=== PATIENT | female | born 2000 | race Caucasian/White ===

== ENCOUNTER 2021-01-29 11:34 | Emergency (ER) | payer OTHER ==
[2021-01-29] MEDS ORDERED: LIDOCAINE-EPINEPH-TETRACAINE 3 ML SYRINGE TOP STA (12:09)
--- NOTE | 2021-01-29 12:09 | ED Physician Documentation ---
PD HPI UPPER EXT INJURY - Stated complaint Stated Complaint: L THUMB LAC - Chief complaint Chief Complaint: Laceration - History obtained from History obtained from: Patient - History of Present Illness Location: Left, Finger (thumb tip volar side) Type of injury: Laceration Where injury occurred: Home Timing - onset: Last night (about 3:30 am) Timing - details: Abrupt onset (while cutting cheese) Worsened by: Moving, Palpating Associated symptoms: Other (it bleeds again this morning when cleaned it.). No: Weakness, Numbness Contributing factors: No: Anticoagulated Similar symptoms before: Has not had sx before Review of Systems Constitutional: denies: Fever Nose: denies: Rhinorrhea / runny nose, Congestion Throat: denies: Sore throat Respiratory: denies: Cough Skin: reports: Laceration (s) Neurologic: denies: Focal weakness, Numbness PD PAST MEDICAL HISTORY - Past Medical History Past Medical History: No - Present Medications Home Medications: Ambulatory Orders Medication Instructions Recorded Confirmed Home Medications Unobtainable 01/29/21 01/29/21 [HOME MEDICATIONS UNOBTAINABLE] - Allergies Allergies/Adverse Reactions: Allergies Allergy/AdvReac Type Severity Reaction Status Date / Time No Known Drug Allergies Allergy Verified 01/29/21 11:45 PD ED PE NORMAL - Vitals Vital signs reviewed: Yes - General General: Alert and oriented X 3, No acute distress, Well developed/nourished - Derm Derm: Normal color, Warm and dry - Extremities Extremities: Other (left thumb volar pad ulnar side with 1.5 cm laceration to fatty layer. Normal sensation distal to it. Prox end just at flexion crease. Normal flex/extension at IP joint. ) - Neuro Neuro: No motor deficit, No sensory deficit Results - Vitals Vitals: Vital Signs - 24 hr 01/29/21 01/29/21 11:42 13:13 Temperature 36.3 C L Heart Rate 90 72 Respiratory 16 16 Rate Blood Pressure 133/71 H 126/57 L O2 Saturation 99 99 Oxygen O2 Source Room air Procedures - Laceration (location) left thumb Length in cm: 1.5 Wound type: Linear, Into subcut fat, Clean. No: Contaminated Neurovascular status: No: Sensory intact, Motor intact, Vascular intact Anesthesia: LET, Lidocaine 1% Wound preparation: Irrigated copiously NS, Wound explored, To the base. No: FB identified Skin layer closure: Nylon, Running, Size #-0 - enter number (4), Sutures - enter # (8) Other: Patient tolerated well, No complications, Neurovascular intact, Dressing applied, Tetanus UTD PD MEDICAL DECISION MAKING - ED course Complexity details: considered differential (it does split with movement and will be more secure with sutures. ), d/w patient Departure - Departure Disposition: 01 Home, Self Care Clinical Impression: Thumb laceration Qualifiers: Encounter type: initial encounter Damage to nail status: without damage Foreign body presence: without foreign body Laterality: left Qualified Code(s): S61.012A - Laceration without foreign body of left thumb without damage to nail, initial encounter Condition: Stable Record reviewed to determine appropriate education?: Yes Instructions: ED Laceration Hand Follow-Up: BETH MARTINEZ PA-C [Primary Care Provider] - Comments: It is okay to wash and shower. Clean off the wound twice a day with soap and water, or peroxide and water. Apply some antibiotic ointment to it to keep it moist. Also to watch for signs of infection such as purulence, redness or increasing pain. Return to your primary care or the ER at the specified time for suture removal. Suture removal 8 to 10 days. Light to normal activity is okay with hand just to have it slightly bandaged or protected. Tylenol ibuprofen as needed for pains. Discharge Date/Time: 01/29/21 13:19
[2021-01-29] MEDS ORDERED: BUFFERED LIDOCAINE 10 ML SYRINGE SUBQ STA (12:10)
[2021-01-29 13:14] VITALS: BP 126/57
== END 2021-01-29 13:19 | disposition home or self-care (01) ==
LOC: ED 11:34
DX: S61.012A Laceration without foreign body of left thumb without damage to nail, initial encounter (principal); W26.0XXA Contact with knife, initial encounter; Y93.G1 Activity, food preparation and clean up; Y92.009 Unspecified place in unspecified non-institutional (private) residence as the place of occurrence of the external cause
CPT/HCPCS: 12001; 99282

== ENCOUNTER 2023-06-04 08:00 | Outpatient (CLI) | payer OTHER ==
[2023-06-04 15:56] LABS: BILIRUBIN,URINE NEGATIVE (NEGATIVE); GLUCOSE, URINE (UA) NEGATIVE (NEGATIVE); KETONES,URINE (UA) NEGATIVE (NEGATIVE); LEUKOCYTE ESTERASE, URINE NEGATIVE (NEGATIVE); NITRITE,URINE NEGATIVE (NEGATIVE); OCCULT BLOOD,URINE NEGATIVE (NEGATIVE); PROTEIN,URINE NEGATIVE (NEGATIVE); UROBILINOGEN,URINE 0.2 (NORMAL) E.U./dL (NORMAL)
[2023-06-04 15:58] LABS: CLARITY,URINE CLEAR (CLEAR)
[2023-06-04 16:15] LABS: BACTERIA,URINE None Seen /HPF (None Seen); RBC,URINE None Seen /HPF (0-5); SQUAMOUS EPITHELIAL CELL,UR RARE Squamous (<= Few); WBC,URINE 0-3 /HPF (0-5)
== END 2023-06-04 23:59 | disposition home or self-care (01) ==
LOC: LAB.WC 08:00
PROVIDERS: ATTEND Nurse Practitioner
DX: Z34.90 Encounter for supervision of normal pregnancy, unspecified, unspecified trimester (principal)
CPT/HCPCS: 81001; 87086

== ENCOUNTER 2023-06-08 11:48 | Outpatient (CLI) | payer OTHER ==
[2023-06-08 19:01] LABS: BASOPHILS % (AUTO) 0.4 %; EOSINOPHILS % (AUTO) 0.1 %; HCT - HEMATOCRIT 38.1 % (37.0-47.0); HGB - HEMOGLOBIN 12.8 g/dL (12.0-16.0); LYMPHOCYTES % (AUTO) 24.1 %; MEAN CORPUSCULAR HGB CONC 33.6 g/dL (32.0-36.0); MEAN CORPUSCULAR VOLUME 89.4 fL (81.0-99.0); MEAN PLATELET VOLUME 10.3 fL (7.9-10.8); MONOCYTES # (AUTO) 0.3 10^3/uL (0.0-1.0); MONOCYTES % (AUTO) 3.8 %; NEUTROPHILS # (AUTO) 5.8 10^3/uL (1.5-6.6); NEUTROPHILS % (AUTO) 71.4 %; PLT - PLATELET COUNT 268 10^3/uL (130-450); RED BLOOD COUNT 4.26 10^6/uL (4.20-5.40); RED CELL DISTRIBUTION WIDTH 12.1 % (12.0-15.0); WHITE BLOOD COUNT 8.1 x10^3/uL (4.8-10.8)
[2023-06-10 09:08] LABS: HBsAG SCREEN Negative (Negative)
[2023-06-10 12:08] LABS: VARICELLA-ZOSTER AB IGG 673 index (Immune >165)
[2023-06-10 20:07] LABS: HCV AB Non Reactive (Non Reactive); HIV SCREEN 4TH GENERATION Non Reactive (Non Reactive)
[2023-06-11 04:09] LABS: RPR Non Reactive (Non Reactive)
== END 2023-06-08 11:49 | disposition home or self-care (01) ==
LOC: LAB.N 11:48
PROVIDERS: ATTEND Nurse Practitioner
DX: Z34.90 Encounter for supervision of normal pregnancy, unspecified, unspecified trimester (principal)
CPT/HCPCS: 36415; 85025; 86592; 86762; 86787; 86803; 86850; 86900; 86901; 87340; 87389

== ENCOUNTER 2023-06-12 13:38 | Outpatient (CLI) | payer OTHER ==
--- NOTE | 2023-06-12 15:49 | Ultrasound Report ---
PROCEDURE: OB First Trimester w/TV INDICATIONS: POSITIVE TEST OUTSIDE/PRIOR DATING DATA: Last menstrual period (LMP): 04/15/2023. LMP-based estimated date of delivery (ZAKI): 01/20/2024. First dating scan (date and location): 06/13/2023. Estimated date of delivery (ZAKI) from first dating scan: 01/25/2024. TECHNIQUE: Real-time scanning was performed of the fetus and maternal pelvic organs, with image documentation. Endovaginal scanning was also performed to better visualize the fetus and maternal ovaries. COMPARISON: None. FINDINGS: Intrauterine gestational sac present. Embryo: [place]-rump length measures 1.2 cm, consistent with a 7 week 4 day gestation Heart rate: 140 bpm. Other: No perigestational fluid collection. Measurement variability in dating: +/- 4 weeks by LMP, +/- 7 days by mean sac diameter (use before 6 weeks gestation if crown-rump length not able to be measured), +/- 5 days by crown-rump length (6-12 weeks gestation). Maternal organs: Ovaries appear within normal limits. IMPRESSION: Single live intrauterine consistent with 7 week 4 day gestation Reviewed by: Juan Sigala MD on 06/12/2023 2:48 PM MATT Approved by: Juan Sigala MD on 06/12/2023 2:48 PM [facility] Station ID: [id number]
== END 2023-06-12 13:39 | disposition home or self-care (01) ==
LOC: DI 13:38
PROVIDERS: ATTEND Nurse Practitioner
DX: Z34.91 Encounter for supervision of normal pregnancy, unspecified, first trimester (principal)

== ENCOUNTER 2023-07-01 08:00 | Outpatient (CLI) | payer OTHER ==
[2023-07-02 18:04] LABS: CHLAMYDIA TRACHOMATIS DNA NEGATIVE (NEGATIVE); NEISSERIA GONORRHOEAE DNA NEGATIVE (NEGATIVE); TRICHOMONAS VAGINALIS DNA NEGATIVE (NEGATIVE)
== END 2023-07-01 23:59 | disposition home or self-care (01) ==
LOC: LAB.WC 08:00
PROVIDERS: ATTEND Nurse Practitioner
DX: Z11.3 Encounter for screening for infections with a predominantly sexual mode of transmission (principal)
CPT/HCPCS: 87491; 87591; 87661

== ENCOUNTER 2023-07-03 16:09 | Outpatient (CLI) | payer OTHER | END 2023-07-03 16:10 | disposition home or self-care (01) | LOC: LAB 16:09 | PROVIDERS: ATTEND Nurse Practitioner | DX: Z36.89 Encounter for other specified antenatal screening (principal) ==

== ENCOUNTER 2023-08-12 17:58 | Outpatient (CLI) | payer OTHER | END 2023-08-12 17:59 | disposition home or self-care (01) | LOC: LAB.N 17:58 | PROVIDERS: ATTEND Nurse Practitioner | DX: Z34.90 Encounter for supervision of normal pregnancy, unspecified, unspecified trimester (principal) | CPT/HCPCS: 36415; 82105 ==

== ENCOUNTER 2023-09-09 16:17 | Outpatient (CLI) | payer OTHER ==
--- NOTE | 2023-09-11 13:59 | Ultrasound Report ---
PROCEDURE: OB Anatomy Scan INDICATIONS: SUPERVISION OF OUTSIDE/PRIOR DATING DATA: Last menstrual period (LMP): 04/15/2023. LMP-based estimated date of delivery (ZAKI): 01/20/2024. First dating scan (date and location): 06/12/2023. Estimated date of delivery (ZAKI) from first dating scan: 01/25/2024. The below data below was generated using the clinical ZAKI of 01/20/2024 TECHNIQUE: Real-time scanning was performed of the fetus, with image documentation and biometric measurements. Endovaginal scanning: Not performed. COMPARISON: None. FINDINGS: General: A single living intrauterine gestation is present. Presentation: Variable Placenta: Placental position is anterior, without previa. Amniotic fluid index: 14.5 cm, within normal limits for gestational age. heart rate: 153 beats per minute. Maternal cervical canal: 4.5 cm long; normal length is 2.5 cm or more. biometrics: Biparietal diameter: 4.8 cm, 20 weeks 4 days, 31 percentile Head circumference: 18.4 cm, 20 weeks 5 days, 31 percentile Abdominal circumference: 16.3 cm, 21 weeks 3 days, 55th percentile Femur length: 3.37 m, 20 weeks 2 days, 18th percentile Estimated gestational age from initial scan: 21 weeks 0 days Composite gestational age from present scan: 20 weeks 3 days Estimated weight and percentile: 381 g, 36th percentile Measurement variability in biometric dating: +/- 10 days from 12-20 weeks gestation, +/- 2 weeks from 20-30 weeks gestation, +/- 3 weeks at 30 weeks gestation or later. Anatomic survey: Neuro: Ventricles are normal at less than 10 mm. Cisterna magna is normal at 3-11 mm. Cerebellum i s normal in size and morphology. Nuchal skin fold: Normal at less than 6 mm between 14 and 20 weeks gestational age. Face: Nose and lips, facial profile are normal. Spine: No evidence for spina bifida. Heart: 4-chambered heart is present, with normal ventricular outflow tracts. Diaphragm: Diaphragm is intact. Stomach: Left-sided stomach is present. Kidneys: No hydronephrosis. Normal is less than 5 mm in 2nd trimester, less than 7 mm in 3rd trimester. Cord: 3 vessel cord has orthotopic insertion. Bladder: Normal in size. Extremities: All 4 extremities are visualized. IMPRESSION: Single living intrauterine at 20 weeks 0 days, ZAKI of 01/20/2024. Estimated weight of 381 g, 36th percentile. Reviewed by: Kev Glez MD on 09/11/2023 1:58 PM PST Approved by: Kev Glez MD on 09/11/2023 1:58 PM [facility] Station ID: [id number]
== END 2023-09-09 16:18 | disposition home or self-care (01) ==
LOC: DI 16:17
PROVIDERS: ATTEND Nurse Practitioner
DX: Z34.92 Encounter for supervision of normal pregnancy, unspecified, second trimester (principal)

== ENCOUNTER 2023-10-19 10:46 | Outpatient (CLI) | payer OTHER ==
[2023-10-19 19:08] LABS: HCT - HEMATOCRIT 33.7 % (37.0-47.0); HGB - HEMOGLOBIN 10.8 g/dL (12.0-16.0); MEAN CORPUSCULAR HEMOGLOBIN 29.7 pg (27.0-31.0); MEAN CORPUSCULAR VOLUME 92.6 fL (81.0-99.0); MEAN PLATELET VOLUME 10.8 fL (7.9-10.8); RED BLOOD COUNT 3.64 10^6/uL (4.20-5.40); RED CELL DISTRIBUTION WIDTH 13.8 % (12.0-15.0); WHITE BLOOD COUNT 11.1 x10^3/uL (4.8-10.8)
== END 2023-10-19 10:47 | disposition home or self-care (01) ==
LOC: LAB.N 10:46
PROVIDERS: ATTEND Obstetrics & Gynecology
DX: Z34.90 Encounter for supervision of normal pregnancy, unspecified, unspecified trimester (principal)
CPT/HCPCS: 36415; 82950; 85027

== ENCOUNTER 2023-12-17 08:00 | Outpatient (CLI) | payer OTHER ==
[2023-12-17 18:12] LABS: CREATININE,URINE 81.9 mg/dL; PROTEIN/CREATININE RATIO,URINE 0.2 (<=0.2)
== END 2023-12-17 23:59 | disposition home or self-care (01) ==
LOC: LAB.WC 08:00
PROVIDERS: ATTEND Nurse Practitioner
DX: R60.0 Localized edema (principal)
CPT/HCPCS: 82570; 84156

== ENCOUNTER 2023-12-26 08:00 | Outpatient (CLI) | payer OTHER | END 2023-12-26 23:59 | disposition home or self-care (01) | LOC: LAB.WC 08:00 | PROVIDERS: ATTEND Obstetrics & Gynecology | DX: Z36.85 Encounter for antenatal screening for Streptococcus B (principal) | CPT/HCPCS: 87797 ==

== ENCOUNTER 2023-12-28 07:26 | Outpatient (CLI) | payer OTHER ==
--- NOTE | 2023-12-28 08:48 | Ultrasound Report ---
PROCEDURE: OB Follow up INDICATIONS: UTERINE SIZE DATE DISCREPENCY OUTSIDE/PRIOR DATING DATA: Last menstrual period (LMP): 04/15/2023. LMP-based estimated date of delivery (ZAKI): 01/20/2024. First dating scan (date and location): 06/12/2023. Estimated date of delivery (ZAKI) from first dating scan: 01/25/2024. Working ZAKI is 01/20/2024 TECHNIQUE: Real-time scanning was performed of the fetus, with image documentation and biometric measurements. COMPARISON: 09/09/2023 FINDINGS: General: A single living intrauterine gestation is present. Presentation: Vertex Placenta: Placental position is anterior, without previa. Amniotic fluid index: 15.9 cm, within normal limits for gestational age. heart rate: 144 beats per minute. Maternal cervical canal: 4.1 cm long; normal length is 2.5 cm or more. biometrics: Biparietal diameter: 9.1 cm, 37 weeks, 72.3 percentile Head circumference: 30.39 cm, 33 weeks and 6 days, 0.5 percentile Abdominal circumference: 32.07 cm, 36 weeks, 41.5 percentile Femur length: 6.57 cm, 33 weeks and 6 days, 2 percentile Estimated gestational age from initial scan: 36 weeks and 5 days Composite gestational age from present scan: 35 weeks and 1 day Estimated weight and percentile: 2644.5 g, 19.6 percentile Measurement variability in biometric dating: +/- 10 days from 12-20 weeks gestation, +/- 2 weeks from 20-30 weeks gestation, +/- 3 weeks at 30 weeks gestation or more. Other: Not applicable. IMPRESSION: Normal interval growth with EFW at the 19.6 percentile. Normal JOSE. Vertex presentation Head circumference is less than the 1st percentile, however BPD is within normal limits. Attention on follow-up. Reviewed by: Yomi Araujo MD on 12/28/2023 8:46 AM PDT Approved by: Yomi Araujo MD on 12/28/2023 8:46 AM PDT Station ID: [id number]
== END 2023-12-28 07:27 | disposition home or self-care (01) ==
LOC: DI 07:26
PROVIDERS: ATTEND Nurse Practitioner
DX: O26.843 Uterine size-date discrepancy, third trimester (principal); Z3A.35 35 weeks gestation of pregnancy; O99.891 Other specified diseases and conditions complicating pregnancy; L29.9 Pruritus, unspecified; M79.89 Other specified soft tissue disorders
CPT/HCPCS: 36415; 82239; 82570; 83036; 84156; 85027; 86592

== ENCOUNTER 2023-12-28 08:11 | Outpatient (CLI) | payer OTHER ==
[2023-12-28 08:28] LABS: HCT - HEMATOCRIT 35.5 % (37.0-47.0); HGB - HEMOGLOBIN 11.8 g/dL (12.0-16.0); MEAN CORPUSCULAR HEMOGLOBIN 29.7 pg (27.0-31.0); MEAN CORPUSCULAR HGB CONC 33.2 g/dL (32.0-36.0); MEAN CORPUSCULAR VOLUME 89.4 fL (81.0-99.0); MEAN PLATELET VOLUME 9.9 fL (7.9-10.8); RED BLOOD COUNT 3.97 10^6/uL (4.20-5.40); RED CELL DISTRIBUTION WIDTH 13.5 % (12.0-15.0); WHITE BLOOD COUNT 10.8 x10^3/uL (4.8-10.8)
[2023-12-28 08:45] LABS: CREATININE,URINE 35.9 mg/dL; PROTEIN/CREATININE RATIO,URINE 0.2 (<=0.2)
[2023-12-28 11:28] LABS: ESTIMATED AVERAGE GLUCOSE 97 mg/dL (70-100)
== END 2023-12-28 08:12 | disposition home or self-care (01) ==
LOC: LAB 08:11
PROVIDERS: ATTEND Obstetrics & Gynecology
DX: O99.891 Other specified diseases and conditions complicating pregnancy (principal); L29.9 Pruritus, unspecified; M79.89 Other specified soft tissue disorders
CPT/HCPCS: 36415; 82239; 82570; 83036; 84156; 85027; 86592

== ENCOUNTER 2024-01-14 08:00 | Inpatient (IN) | payer OTHER ==
[2024-01-14] MEDS ORDERED: OXYTOCIN/SODIUM CHLORIDE 500 ML IV PRN (08:10)
[2024-01-14] MEDS ORDERED: miSOPROStoL 200 MCG TABLET BC PRN (08:10)
[2024-01-14] MEDS ORDERED: OXYTOCIN 10 UNIT/ML VIAL IM PRN (08:10)
[2024-01-14] MEDS ORDERED: SODIUM CHLORIDE FLUSH 0.9% 10 ML SYRINGE IVP PRN (08:10)
[2024-01-14] MEDS ORDERED: TRANEXAMIC ACID IN NACL 1,000 MG/100 ML BAG IV PRN (08:10)
[2024-01-14] MEDS ORDERED: METHYLERGONOVINE 0.2 MG/ML VIAL IM PRN (08:10)
[2024-01-14] MEDS ORDERED: lidocaine 1% 20 ML MDV ID PRN (08:10)
[2024-01-14] MEDS ORDERED: CARBOPROST TROMETHAMINE 250 MCG/ML VIAL IM PRN (08:10)
--- NOTE | 2024-01-14 08:25 | HISTORY & PHYSICAL EXAMINATION ---
Admit History - : 1 Parity: 0 Premature: 0 Ectopic: 0 : 0 Care: positive: [facility] Risk/History: positive: None Complications This : positive: None Smoking Status: Never smoker - Mother's Labs Mother's Blood Type: positive: B Mother's RH: positive: Positive GBS: positive: Group B Step Negative Rubella Status: positive: Non-immune - Other Maternal History Other Maternal History: HPI: This 23 yo @ 39+1 weeks by LMP and confirmed by 7+4 week ultrasound presents for elective induction of labor. Upon arrival her cervix was 2/70/-2 and vertex with intact membranes. Melgar score of 6. We reviewed management options at length and patient agreeable to cervical ripening with misoprostol. She has been a patient of [facility] for the duration of her which has remained uncomplicated. No Headache, visual changes, or right upper quadrant abdominal pain. Denies nausea and vomiting. Denies urinary urgency or dysuria. Spouse (Dl) home from deployment but only for 2 weeks. Well- supported, her parents here on [place] and Sister in [place]. 12/28/2023 u/s EFW 19.6% (2644.5g @ 35.5weeks gestation), normal JOSE (15.9cm), vertex presentation. Head circumference less than first percentile but BPD within normal limits. ROS: All other symptoms reviewed and were negative except per HPI. Dating criteria LMP:04/15/23 ZAKI by LMP: 01/20/24 US: 06/13/2023 7+4 weeks CW dates Final ZAKI: 01/20/2024 Serial exams agree. OB Hx: G1: current course: Pre- Weight:141.8 BMI: 30.80 Blood type: B+ Antibody: negative CBC: PLT 268 HCT 38.1 HGB 12.8 RUB: immune VZV: immune HBsAg: negative HepC: N-R RPR/AB-EIA: N-R HIV: N-R PAP: never, will plan to complete POST GC/CT: 07/01- Negative HSV: denies in self and partner Genetic testing: MaterniT 21 07/03/2023 Negative ; AFP 08/12- Negative Covid: Moderna, initial set Flu: will consider FAS: WNL, 3 VC, anterior placenta; no previa, JOSE normal EFW 36% 50gm OGCT: 131 TDAP: Given 10/24/2023 Breast Pump: Given 3rd trimester PLT 189 HGB 10.8; HCT 33.7 GBS:12/26/23 Negative Delivery plan: Take it as it comes. Contraception: Previous use OCPs. Would like to start again, likely Chanda No significant medical, surgical, social or family history. Allergies to gluten but no known drug allergies. Current medications: vitamins daily. Physical Exam: Normocephalic, atraumatic Heart RRR w/o M/G/R Lungs CTAB Abdomen gravid, soft, nontender. EFW 3300g FHR baseline 140, moderate variability, + accelerations, no decelerations Contractions palpate moderate every 3-6 minutes with soft resting tone SVE 2/50/-2, vertex, membranes intact Bilateral upper and lower extremities 1+, non-pitting edema Mood is good. Assessment: 23 yo @ 39 weeks gestation by LMP confirmed by first trimester u/s Term, uncomplicated . FHR Cat I GBS NEG Plan: Admit to observation on WHFBP for cervical ripening followed by admission for induction of labor. Continuous monitoring. Anesthesia to be notified for placement of epidural per pt request. Anticipate (Dianna Cespedes) - HPI Current EDU 01/20/24 Gestation 39 Weeks and 1 Days 1 Vital Signs Temperature 98.2 F 01/14/24 08:31 Heart Rate 99 01/14/24 08:31 Respiratory Rate 16 01/14/24 08:31 Blood Pressure 134/61 H 01/14/24 08:31 Temperature 98.2 F 01/14/24 08:31 Heart Rate 99 01/14/24 08:31 Respiratory Rate 16 01/14/24 08:31 Blood Pressure 134/61 H 01/14/24 08:31 O2 Saturation If not protocol: Oxygen Flow, liters/minute Meds/Allgy - Home Medications Home Medications: Ambulatory Orders Medication Instructions Recorded Confirmed Ondansetron HCl 4 mg PO DAILY PRN 01/14/24 01/14/24 No122/Iron/Folic Acid 1 tab PO DAILY 01/14/24 01/14/24 [ Multi Tablet] - Allergies Allergies/Adverse Reactions: Allergies Allergy/AdvReac Type Severity Reaction Status Date / Time gluten Allergy Cramps Verified 01/14/24 17:07 Physical - Abdominal Exam Vital Signs: Temp Pulse Resp BP Pulse Ox O2 Flow Rate 98.2 F 99 16 134/61 H 01/14/24 08:31 01/14/24 08:31 01/14/24 08:31 01/14/24 08:31 Plan for Labor - Plan For Labor I expect patient to be DC'd or transferred within 96 hours.: Yes - Plan For Labor Plan for Labor: induction with miso. timing due to 's short leave. reviewed history and plan with Dianna and patient. (Argelia Agarwal)
[2024-01-14 08:54] LABS: BASOPHILS % (AUTO) 0.1 %; EOSINOPHILS % (AUTO) 0.1 %; HCT - HEMATOCRIT 36.1 % (37.0-47.0); HGB - HEMOGLOBIN 11.9 g/dL (12.0-16.0); LYMPHOCYTES # (AUTO) 1.7 10^3/uL (1.5-3.5); LYMPHOCYTES % (AUTO) 17.6 %; MEAN CORPUSCULAR HEMOGLOBIN 29.5 pg (27.0-31.0); MEAN CORPUSCULAR VOLUME 89.4 fL (81.0-99.0); MEAN PLATELET VOLUME 11.4 fL (7.9-10.8); MONOCYTES # (AUTO) 0.3 10^3/uL (0.0-1.0); MONOCYTES % (AUTO) 2.7 %; NEUTROPHILS # (AUTO) 7.6 10^3/uL (1.5-6.6); NEUTROPHILS % (AUTO) 78.8 %; PLT - PLATELET COUNT 171 10^3/uL (130-450); RED BLOOD COUNT 4.04 10^6/uL (4.20-5.40); RED CELL DISTRIBUTION WIDTH 13.2 % (12.0-15.0); WHITE BLOOD COUNT 9.7 x10^3/uL (4.8-10.8)
[2024-01-14] MEDS ORDERED: SODIUM CHLORIDE FLUSH 0.9% 10 ML SYRINGE IVP SCH (09:00)
[2024-01-14] MEDS ORDERED: CALCIUM CARBONATE CHEW 500 MG TABLET PO PRN (09:00)
[2024-01-14] MEDS ORDERED: FAMOTIDINE 20 MG/2 ML VIAL IVP SCH (09:00)
[2024-01-14] MEDS ORDERED: METOCLOPRAMIDE 10 MG/2 ML VIAL IVP PRN ×2 (09:00→21:09)
[2024-01-14] MEDS ORDERED: hydrALAZINE INJ 20 MG/ML VIAL IVP PRN ×2 (09:00)
[2024-01-14] MEDS ORDERED: ONDANSETRON 4 MG/2 ML VIAL IVP PRN ×2 (09:00→21:09)
[2024-01-14] MEDS ORDERED: diphenhydrAMINE INJ 50 MG/ML VIAL IVP PRN ×2 (09:00→21:09)
[2024-01-14] MEDS ORDERED: ACETAMINOPHEN 500 MG TABLET PO PRN (09:00)
[2024-01-14] MEDS ORDERED: fentaNYL 100 MCG/2 ML VIAL IVP PRN (09:00)
[2024-01-14] MEDS ORDERED: LABETALOL 20 MG/4 ML SYRINGE IVP PRN ×3 (09:00)
[2024-01-14] MEDS ORDERED: NIFEdipine 10 MG CAPSULE PO PRN (09:00)
[2024-01-14] MEDS ORDERED: TERBUTALINE 1 MG/ML VIAL SUBQ PRN (09:00)
[2024-01-14] MEDS: miSOPROStoL 100 MCG TABLET VG SCH (09:16)
--- NOTE | 2024-01-14 10:34 | PHARMACY PROGRESS NOTE ---
- Best Possible Medication History Admit Date and Time: 01/14/24 0810 Processed by: Pharmacy Medications reviewed in ED?: No Medication History completed: Yes Patient Interview: Completed Secondary Source(s): Insurance records As the person ultimately responsible for medication therapy, providers are able to order a medication from an existing home medication list in [facility] via the "Reconcile Routine" prior to Confirmation of that medication by field support representative. Such practice is discouraged except when the physician, in their clinical judgment, deems that a medical need exists for a medication without regard to previous use.
--- NOTE | 2024-01-14 14:01 | ANESTHESIA ---
Pre-Anesthesia VS, & Labs - Diagnosis , 39+1 WEEK FOR LABOR EPIDURAL - Procedure placement of labor epidural Vital Signs: Temp Pulse Resp BP Pulse Ox O2 Flow Rate 36.8 C 99 16 134/61 H 01/14/24 08:31 01/14/24 08:31 01/14/24 08:31 01/14/24 08:31 Height: 4 ft 9 in Weight (kg): 72.575 kg Body Mass Index: 34.6 BMI Classification: Obese - NPO Last Fluid Intake: NOT NPO CURRENTLY - Is Patient ?: Yes - Lab Results Current Lab Results: Laboratory Tests 01/14/24 08:40: WBC 9.7, RBC 4.04 L, Hgb 11.9 L, Hct 36.1 L, MCV 89.4, MCH 29.5, MCHC 33.0, RDW 13.2, Plt Count 171, MPV 11.4 H, Neut # (Auto) 7.6 H, Lymph # (Auto) 1.7, [place] # (Auto) 0.3, Eos # (Auto) 0.0, Baso # (Auto) 0.0, Absolute Nucleated RBC 0.00, Nucleated RBC % 0.0 01/14/24 08:40: Blood Type A POSITIVE, Antibody Screen NEGATIVE Lab results reviewed: Yes Fish Bones: 01/14/24 08:40 Home Medications and Allergies Home Medications: Ambulatory Orders Ondansetron HCl 4 mg PO DAILY PRN 01/14/24 No122/Iron/Folic Acid [ Multi Tablet] 1 tab PO DAILY 01/14/24 Active Medications Acetaminophen (Acetaminophen 500 Mg Tablet) 1,000 mg PO Q8H PRN PRN Reason: Mild Pain or Fever>38C(100.4F) Calcium Carbonate/Glycine (Calcium Carbonate Chew 500 Mg Tablet) 1,000 mg PO Q6HR PRN PRN Reason: Heartburn Carboprost Tromethamine (Carboprost Tromethamine 250 Mcg/Ml Vial) 250 mcg IM Q15M PRN PRN Reason: Step 4: Hemorrhage protocol Diphenhydramine HCl (Diphenhydramine Inj 50 Mg/Ml Vial) 25 mg IVP Q6H PRN PRN Reason: Allergy Symptoms Famotidine (Famotidine 20 Mg/2 Ml Vial) 20 mg IVP DAILY DANITA Fentanyl (Fentanyl 100 Mcg/2 Ml Vial) 50 mcg IVP Q1H PRN PRN Reason: Severe Pain (score 7-10) Hydralazine HCl (Hydralazine Inj 20 Mg/Ml Vial) 5 - 10 mg IVP Q20M PRN; Protocol PRN Reason: SBP> or= 160 OR DBP> or= 110 Hydralazine HCl (Hydralazine Inj 20 Mg/Ml Vial) 10 mg IVP .ONCE PRN; Protocol PRN Reason: SBP> or= 160 OR DBP> or= 110 Oxytocin/Sodium Chloride (Pitocin/Sodium Chloride) 500 mls @ 999 mls/hr IV PRN PRN; Protocol PRN Reason: POST- HEMORR PREVENTION Stop: 01/19/24 08:11 Tranexamic Acid (Tranexamic 1,000 Mg/100ml-Nacl) 1,000 mg in 100 mls @ 600 mls/hr IV .ONCE PRN PRN Reason: EBL >1200mL and within 3hr Stop: 01/19/24 08:11 Lactated Ringer's (Lr) 1,000 mls @ 100 mls/hr IV .Q10H DANITA Labetalol HCl (Labetalol 20 Mg/4 Ml Syringe) 20 - 80 mg IVP Q10M PRN; Protocol PRN Reason: SBP> or= 160 OR DBP> or= 110 Labetalol HCl (Labetalol 20 Mg/4 Ml Syringe) 20 mg IVP .ONCE PRN; Protocol PRN Reason: SBP> or= 160 OR DBP> or= 110 Labetalol HCl (Labetalol 20 Mg/4 Ml Syringe) 20 - 40 mg IVP Q10M PRN; Protocol PRN Reason: SBP> or= 160 OR DBP> or= 110 Lidocaine HCl (Lidocaine 1% 20 Ml Mdv) 20 ml ID .ONCE PRN PRN Reason: PERINEAL REPAIR Stop: 01/19/24 08:11 Methylergonovine Maleate (Methylergonovine 0.2 Mg/Ml Vial) 0.2 mg IM .ONCE PRN PRN Reason: Step 2: Hemorrhage protocol Stop: 01/19/24 08:11 Metoclopramide HCl (Metoclopramide 10 Mg/2 Ml Vial) 5 mg IVP Q6HR PRN PRN Reason: Nausea / Vomiting Misoprostol (Misoprostol 200 Mcg Tablet) 800 mcg BC .ONCE PRN PRN Reason: Step 3: Hemorrhage protocol Stop: 01/19/24 08:11 Misoprostol (Misoprostol 100 Mcg Tablet) 25 mcg VG Q4H DANITA Last Admin: 01/14/24 13:25 Dose: 25 mcg Nifedipine (Nifedipine 10 Mg Capsule) 10 - 20 mg PO Q20M PRN; Protocol PRN Reason: SBP> or= 160 OR DBP> or= 110 Ondansetron HCl (Ondansetron 4 Mg/2 Ml Vial) 4 mg IVP PRN PRN PRN Reason: Nausea / Vomiting Oxytocin (Oxytocin 10 Unit/Ml Vial) 10 unit IM .ONCE PRN PRN Reason: Step one: If no IV access Stop: 01/19/24 08:11 Multivit/Folic Acid/Iron ( Vitamin Tablet) 1 tab PO DAILYWM DANITA Sodium Chloride (Sodium Chloride Flush 0.9% 10 Ml Syringe) 10 ml IVP 0100,0900,1700 DANITA Sodium Chloride (Sodium Chloride Flush 0.9% 10 Ml Syringe) 10 ml IVP PRN PRN PRN Reason: NEEDED PER PROVIDER ORDERS Terbutaline Sulfate (Terbutaline 1 Mg/Ml Vial) 0.25 mg SUBQ .ONCE PRN PRN Reason: Tachystole Ondansetron HCl 4 mg PO DAILY PRN 01/14/24 No122/Iron/Folic Acid [ Multi Tablet] 1 tab PO DAILY 01/14/24 Allergies/Adverse Reactions: Allergies Allergy/AdvReac Type Severity Reaction Status Date / Time gluten Allergy Unknown Verified 01/14/24 09:09 Anes History & Medical History - Anesthetic History Anesthesia Complications: reports: No previous complications Family history of Anesthesia Complications: Denies - Medical History Cardiovascular: reports: None Pulmonary: reports: None Gastrointestinal: reports: None Urinary: reports: None Neuro: reports: None Musculoskeletal: reports: None Endocrine/Autoimmune: reports: None Blood Disorders: reports: None Skin: reports: None Smoking Status: Never smoker Psychosocial: reports: No issues indicated - Obstetrical History : 1 Parity: 0 Events: reports: None Complications: reports: None Exam General: Alert, Oriented x3 Dental: WNL Mouth Openin Fingerbreadth Neck Mobility: Normal Mallampati classification: II Thyromental Distance: less than 4 cm Plan Anesthesia Type: Epidural Consent for Procedure(s) Verified and Reviewed: Yes Code Status: Attempt Resuscitation ASA classification: 1-Healthy patient Is this case an emergency?: No
--- NOTE | 2024-01-14 17:54 | PROVIDER PROGRESS NOTE ---
<Dianna Cespedes - Last Filed: 01/14/24 17:51> Labor Progress Note - Uterine Monitoring Uterine Monitoring Mode: positive: External toco Contraction Frequency (min/apart): 1-3 Contraction Intensity: positive: Strong Uterine Resting Tone: positive: Soft - Monitoring Monitor Mode: positive: External ultrasound Heart Rate Baseline: 140 Heart Rate Variability: positive: Moderate (6-25 bmp) Accelerations: positive: Present, 15x15 Decelerations: positive: None Strip Review: positive: Category I - Vaginal Exam Dilation (in cm): 5 Effacement (%): 70 Station: -2 Cervical Position: Midposition - Labor Progress Note Labor Progress Note/Additional Text: Shared decision making utilized re: labor augmentation. AROM per patient request. Large amount of clear fluid. Patient discomfort increased significantly after AROM. Desiring anesthesia consultation for epidural pain relief. <Argelia Agarwal - Last Filed: 01/14/24 19:07> Labor Progress Note - Labor Progress Note Labor Progress Note/Additional Text: I was present with Dianna for her exam and discussion with patient and I agree with the plan.
[2024-01-14] MEDS: LACTATED RINGERS 1,000 ML IV SCH (19:00)
[2024-01-14] MEDS ORDERED: LIDOCAINE 2%-EPI 1:100000 20 ML MDV ONE (20:03)
[2024-01-14] MEDS ORDERED: ROPIVACAINE 0.2% 200 MG/100 ML BAG EP ONE (20:03)
[2024-01-14] MEDS ORDERED: NALOXONE 0.4 MG/ML VIAL IVP PRN (21:09)
[2024-01-14] MEDS ORDERED: NALBUPHINE 10 MG/ML AMP IVP PRN (21:09)
[2024-01-14] MEDS ORDERED: ePHEDrine 50 MG/ML VIAL IVP PRN (21:09)
--- NOTE | 2024-01-15 00:20 | PROVIDER PROGRESS NOTE ---
<Dianna Cespedes - Last Filed: 01/15/24 00:21> Labor Progress Note - Uterine Monitoring Uterine Monitoring Mode: positive: External toco Contraction Frequency (min/apart): 2-4 Contraction Intensity: positive: Moderate to strong Uterine Resting Tone: positive: Soft - Monitoring Monitor Mode: positive: External ultrasound Heart Rate Baseline: 140 Heart Rate Variability: positive: Minimal (0-5 bpm) Accelerations: positive: Present, 15x15 Decelerations: positive: None Strip Review: positive: Category I - Vaginal Exam Dilation (in cm): 7 Effacement (%): 80 Station: -2 Cervical Position: Midposition - Labor Progress Note Labor Progress Note/Additional Text: Well supported by family. Comfortable with epidural. Discussed normal labor curve and expectations for dilation as well as pushing. Position change frequently by RN team, most recently with peanut ball. Amniotic fluid remains clear. <Argelia Agarwal - Last Filed: 01/15/24 00:34> Labor Progress Note - Labor Progress Note Labor Progress Note/Additional Text: reviewed and agree with plan
[2024-01-15] MEDS: OXYTOCIN/SODIUM CHLORIDE 500 ML IV SCH (01:00)
--- NOTE | 2024-01-15 01:01 | PROVIDER PROGRESS NOTE ---
<Dianna Cespedes - Last Filed: 01/15/24 00:56> Labor Progress Note - Uterine Monitoring Contraction Frequency (min/apart): 2-3 Contraction Intensity: positive: Moderate to strong Uterine Resting Tone: positive: Soft - Monitoring Monitor Mode: positive: External ultrasound Heart Rate Baseline: 140 Heart Rate Variability: positive: Moderate (6-25 bmp) Accelerations: positive: Present, 15x15 Decelerations: positive: None Strip Review: positive: Category I - Labor Progress Note Labor Progress Note/Additional Text: Discussed with Mar's options for further labor management to include continuing with expectant management or pitocin for further labor augmentation. Patient prefers to progress with labor with further augmentation ( proceed with pitocin). Discussed plan of care with [facility] preceptor, Dr. Agarwal. Orders placed for IV pitocin titration per unit policy. <Argelia Agarwal - Last Filed: 01/15/24 01:26> Labor Progress Note - Labor Progress Note Labor Progress Note/Additional Text: reviewed and agree with plan
[2024-01-15] MEDS: ROPIVACAINE 0.2% 200 MG/100 ML BAG EP PRN (02:30)
--- NOTE | 2024-01-15 03:13 | PROVIDER PROGRESS NOTE ---
Labor Progress Note - Uterine Monitoring Uterine Monitoring Mode: positive: External toco Contraction Frequency (min/apart): 2-3.5 Contraction Intensity: positive: Moderate to strong Uterine Resting Tone: positive: Soft - Monitoring Monitor Mode: positive: External ultrasound Heart Rate Baseline: 140 Heart Rate Variability: positive: Moderate (6-25 bmp) Accelerations: positive: Present, 15x15 Decelerations: positive: None Strip Review: positive: Category I - Vaginal Exam Dilation (in cm): 8 Effacement (%): 80 Station: -1 Cervical Position: Midposition, Anterior - Labor Progress Note Labor Progress Note/Additional Text: Discussed plan of care with Mra to include internal monitoring if not significantly changed. She is open to IUPC when indicated. Discussed that she had made some change. Shared decision making utilized and plan of care now to recheck in 2 hours, sooner if needed. Discussed plan of care with nursing team and her family support as well.
--- NOTE | 2024-01-15 04:24 | PROVIDER PROGRESS NOTE ---
Labor Progress Note - Uterine Monitoring Uterine Monitoring Mode: positive: IUPC Contraction Frequency (min/apart): 1.5-4.5 Contraction Intensity: positive: Strong Uterine Resting Tone: positive: Soft - Monitoring Monitor Mode: positive: External ultrasound Heart Rate Baseline: 145 Heart Rate Variability: positive: Moderate (6-25 bmp) Decelerations: positive: Variable, Intermittent (<50% x20 min) Strip Review: positive: Category II - Vaginal Exam Dilation (in cm): 8 Effacement (%): 80 Station: -1 - Labor Progress Note Labor Progress Note/Additional Text: minimal cervical change from 2300 check, no change from 0300 exam. Notable molding. Patient agreeable to internal monitoring (IUPC) placed. Increase in baseline after placement but appears to be slowly returning to previous baseline. 98.9F. Creative and diligent q 30 minute position changes and oxytocin titration (per department policy) by RN.
--- NOTE | 2024-01-15 04:51 | PROVIDER PROGRESS NOTE ---
Labor Progress Note - Uterine Monitoring Uterine Monitoring Mode: positive: IUPC Contraction Intensity: positive: Strong Uterine Resting Tone: positive: Soft - Monitoring Monitor Mode: positive: External ultrasound
--- NOTE | 2024-01-15 04:54 | PROVIDER PROGRESS NOTE ---
<Dianna Cespedes - Last Filed: 01/15/24 04:46> Labor Progress Note - Uterine Monitoring Uterine Monitoring Mode: positive: IUPC Contraction Frequency (min/apart): 2-3 Contraction Intensity: positive: Strong Uterine Resting Tone: positive: Soft - Monitoring Monitor Mode: positive: External ultrasound Heart Rate Baseline: 155-180 Heart Rate Variability: positive: Moderate (6-25 bmp) Accelerations: positive: Prolonged accelerations (>2x10 min) Decelerations: positive: Early, Late, Variable Strip Review: positive: Category II - Labor Progress Note Labor Progress Note/Additional Text: Review of tracing with RN team and Dr. Agarwal. Discussed baseline change to tachycardia with recurrent early and intermittent late decelerations vs prolonged accelerations. 500cc Fluid bolus by RN. Discussed cervical edema at last check. Group consensus for trial of 25 IVP Benadryl for cervical edema. Baseline returned to 150 bpm at 0443. <Argelia Agarwal - Last Filed: 01/15/24 16:56> Labor Progress Note - Labor Progress Note Labor Progress Note/Additional Text: reviewed and agree with plan.
[2024-01-15] MEDS: diphenhydrAMINE INJ 50 MG/ML VIAL IVP SCH (04:58)
--- NOTE | 2024-01-15 07:36 | PROVIDER PROGRESS NOTE ---
<Dianna Cespedes - Last Filed: 01/15/24 07:53> Labor Progress Note - Labor Progress Note Labor Progress Note/Additional Text: This 23-year-old, G 1 P 2. @ 39+ 3 gestation presented yesterday morning for induction of labor. Well supported by /FOB and extended family. On admission, her cervix was 2/50/-2 and Vertex presentation by Leopolds. Melgar score 6. GBS negative. FHR pattern demonstrated 140 baseline in a category I prior to second stage. Epidural placed upon maternal request. AROM occurred 01/14/2024 @ 1723. She was rechecked @2330, she had progressed to 7cm, Pitocin started at 0100 on 01/15/2024 for patient desire to shorten the duration of labor. At 0300 she was 8/80/-1 and caput. Recheck at 0400, cervical exam essentially unchanged but cervix had become edematous. IUPC placed after shared decision making. Prolonged period of tachycardia (FHT 155-180s) with inde terminate baseline and accelerations vs declarations x30 minutes before baseline eventually returned to 150s. IV Benadryl administered for cervical edema and 500cc fluid bolus given for tachycardia. Moderate variability continued. Her cervical exam was repeated at 0645 this morning and was unchanged. Discussed with Patient risk vs benefit of primary section for arrest progression. After further discussion, patient in agreement with non- urgent primary section. OR team and pediatrics made aware of pending c/s. <Argelia Agarwal - Last Filed: 01/15/24 08:21> Labor Progress Note - Labor Progress Note Labor Progress Note/Additional Text: Radha with above assessment and plan.
[2024-01-15] MEDS ORDERED: LIDOCAINE 2%-EPI 1:100000 20 ML MDV ONE (07:47)
[2024-01-15] MEDS ORDERED: ePHEDrine 50 MG/ML VIAL IVP ONE (07:47)
[2024-01-15] MEDS ORDERED: PHENYLEPHRINE HCL 0.5 MG/5 ML AMPULE ONE (07:47)
[2024-01-15] MEDS ORDERED: ONDANSETRON 4 MG/2 ML VIAL ONE (07:48)
[2024-01-15] MEDS ORDERED: AZITHROMYCIN INJ 500 MG in SODIUM CHLORIDE 0.9% 250 ML IV ONE (07:49)
[2024-01-15] MEDS ORDERED: ACETAMINOPHEN 500 MG TABLET PO ONE (07:49)
[2024-01-15] MEDS ORDERED: ceFAZolin (2G) 2 GM in SODIUM CHLORIDE 0.9% MINIBAG 100 ML IV ONE (07:49)
[2024-01-15] MEDS ORDERED: KETOROLAC 30 MG/ML VIAL ONE (08:58)
[2024-01-15] MEDS ORDERED: ACETAMINOPHEN 1,000 MG/100 ML 1,000 MG/100 ML BAG IV ONE (08:58)
[2024-01-15] MEDS ORDERED: OXYTOCIN 10 UNIT/ML VIAL ONE (08:59)
[2024-01-15] MEDS ORDERED: ROPIVACAINE 0.5% PF 20 ML VIAL ONE ×2 (08:59→09:16)
[2024-01-15] MEDS ORDERED: SODIUM CHLORIDE 0.9% 10 ML VIAL IVP ONE ×2 (08:59→09:16)
[2024-01-15] MEDS ORDERED: NIFEdipine 10 MG CAPSULE PO PRN (09:12)
[2024-01-15] MEDS ORDERED: hydrALAZINE INJ 20 MG/ML VIAL IVP PRN ×2 (09:12)
[2024-01-15] MEDS ORDERED: SIMETHICONE CHEW 80 MG TABLET PO PRN (09:12)
[2024-01-15] MEDS ORDERED: diphenhydrAMINE 25 MG CAPSULE PO PRN (09:12)
[2024-01-15] MEDS ORDERED: LABETALOL 20 MG/4 ML SYRINGE IVP PRN ×3 (09:12)
[2024-01-15] MEDS ORDERED: NALOXONE 0.4 MG/ML VIAL IVP PRN ×2 (09:12→10:04)
[2024-01-15] MEDS ORDERED: DEXAMETHASONE 4 MG/ML VIAL ONE (09:14)
--- NOTE | 2024-01-15 09:25 | OPERATIVE REPORT ---
Operative Report - General Admit Date: 01/14/24 Procedure Date: 01/15/24 Planned Procedure: Primary low transverse c section Pre-Op Diagnosis: failure to progress in labor Post Op Diagnosis: same - Procedure Note Primary Surgeon: Argelia Agarwal MD Secondary Surgeon: CURT Monet Anesthesia Provider: Esther Love CRNA Anesthesia Technique: Epidural (Placed by Zacarias Schwarz CRNA) Pathology: none IV Fluids (mL): 1,300 Estimated Blood Loss (mL): 600 Urine Output (mL): 150 - Other Other Information/Narrative: Indications for Procedure: Patient is a 23 year-old woman, undergoing labor induction at term. Baby and mom have done well but mom stopped dilating at 7 cm. pitocin up to 18 with IUPC and no change for many hours. Plan made to proceed with c section. Procedure Details The risks, benefits, complications, treatment options, and expected outcomes were discussed with the patient. The patient concurred with the proposed plan, giving informed consent. The patient was taken to the Operating Room. 2 grams of Cefazolin and 500 mg Azithromycin were given. She had sequential compression devices on her lower extremities. Garcia catheter was placed. vaginal prep was done. A Time Out was held and the above information confirmed. The patient was prepped in the usual sterile manner. Drapes were placed. Anesthesia was tested and found to be adequate. A Pfannenstiel incision was made and carried down through the subcutaneous tissue to the fascia. Fascial incision was made and extended transversely. The fascia was from the underlying rectus tissue superiorly and inferiorly. The peritoneum was identified and entered. Peritoneal incision was stretched. The Jon retractor was placed and rolled down. The uterus was palpated to examine lie. A low transverse uterine incision was made. The incision was stretched manually. Bag of water was entered during the process and fluid was clear. The baby's head was elevated through the incision. The baby was delivered and brought up towards her chest to show mom. Baby was dried and stimulated. I waited for 1 minute to clamp the cord. After the umbilical cord was clamped and cut, cord blood was obtained for evaluation. The placenta was removed intact using gentle traction and appeared normal. The uterine outline, tubes and ovaries appeared normal. The uterine incision was closed with running locked sutures of 0 Monocryl suture. A second horizontal imbricating layer was placed with the same suture. Hemostasis was observed. The Jon retractor was removed. Rectus muscles were examined carefully for bleeding. The fascia was then reapproximated with running sutures of 0 Vicryl. The subcutaneous tissue was brought together with 3.0 Vicryl suture and the skin was closed with 4.0 Monocryl in subcuticular fascia. Wide steri strip was placed over the wound. Bandage was placed. Uterus was expressed. Fundus was firm. Instrument, sponge, and needle counts were correct prior the abdominal closure and at the conclusion of the case. My special education assistant was scrubbed and present during the entire procedure and assisted with visualization, hemostasis, fundal pressure for infant delivery, and closure. Findings: Tubes, ovaries and uterus all appeared normal. Baby is a girl weight pending. scores were 9 and 9. Drains: Garcia catheter to gravity Specimens: none Complications: None; patient tolerated the procedure well. Disposition: back to [facility] for recovery. Condition: stable Plan: Routine post op care
[2024-01-15] MEDS: LACTATED RINGERS 150 ML IV ONE ×2 (09:46→10:13)
[2024-01-15] MEDS: OXYTOCIN/SODIUM CHLORIDE 500 ML IV PRN (10:00)
[2024-01-15] MEDS ORDERED: ONDANSETRON 4 MG/2 ML VIAL IVP PRN (10:04)
[2024-01-15] MEDS ORDERED: ePHEDrine 50 MG/ML VIAL IVP PRN (10:04)
[2024-01-15] MEDS ORDERED: ATROPINE ABBOJECT 1 MG/10 ML SYRINGE IVP PRN (10:04)
[2024-01-15] MEDS ORDERED: METOCLOPRAMIDE 10 MG/2 ML VIAL IVP PRN (10:04)
[2024-01-15] MEDS ORDERED: MORPHINE 2 MG/ML CARPUJECT IVP PRN (10:04)
[2024-01-15] MEDS ORDERED: HYDROmorphone 0.5 MG/0.5 ML SYRINGE IVP PRN (10:04)
[2024-01-15] MEDS ORDERED: fentaNYL 100 MCG/2 ML VIAL IVP PRN (10:04)
--- NOTE | 2024-01-15 10:49 | ANESTHESIA POST OP EVALUATION ---
Anesthesia Post Eval - Post Anesthesia Eval Vitals: Last Vital Signs Temp 37.1 C 01/15/24 10:07 Pulse 83 01/15/24 10:07 Resp 19 01/15/24 10:07 BP 106/68 01/15/24 10:07 Pulse Ox 100 01/15/24 10:07 O2 Flow Rate CV Function Including HR & BP: Stable Pain Control: Satisfactory Nausea & Vomiting: Negative Mental Status: Baseline Respiratory Status: Airway Patent Hydration Status: Satisfactory Anesthesia Complications: None
[2024-01-15] MEDS ORDERED: LACTATED RINGERS 1,000 ML IV SCH (11:00)
[2024-01-15] MEDS: oxyCODONE 5 MG TABLET PO PRN (12:43)
[2024-01-15] MEDS: KETOROLAC 30 MG/ML VIAL IVP SCH (15:00)
[2024-01-15] MEDS: ACETAMINOPHEN 500 MG TABLET PO SCH (16:47)
--- NOTE | 2024-01-15 19:49 | PROVIDER PROGRESS NOTE ---
<Dianna Cespedes - Last Filed: 01/15/24 19:44> Subjective - Prog Note Date Prog Note Date: 01/15/24 Prog Note Time: 19:44 - Subjective Pt reports feeling: Improved Subjective: 23 yo now delivered by primary c/s this morning for arrest of labor progression. Doing well. Ambulating, light vaginal bleeding (few clots), feeling some pain but feels she's okay now without anything additional. Garcia out and voiding. Baby bonding well and in arms of family. Mar feels worn out but overall doing well. Discussed timeline for hospital course and discharge and the importance of allowing her body time to rest and heal. Objective - Vital Signs/Intake & Output Vital Signs: Vital Signs x48h Temp Pulse Resp BP Pulse Ox 01/15/24 17:47 36.6 C 86 18 112/63 97 01/15/24 13:00 36.6 C 69 17 131/78 H Intake & Output: Intake & Output 01/12/24 01/13/24 01/14/24 01/15/24 23:59 23:59 23:59 23:59 Intake Total 2104 Output Total 500 1350 Balance -500 754 - Lab Results Fish Bones: 01/14/24 08:40 <Argelia Agarwal - Last Filed: 01/15/24 20:21> Objective - Vital Signs/Intake & Output Vital Signs: Vital Signs x48h Temp Pulse Resp BP Pulse Ox 01/15/24 20:13 97.9 F 67 18 113/62 98 01/15/24 17:47 97.9 F 86 18 112/63 97 01/15/24 13:00 97.9 F 69 17 131/78 H Intake & Output: Intake & Output 01/12/24 01/13/24 01/14/24 01/15/24 23:59 23:59 23:59 23:59 Intake Total 2104 Output Total 500 1350 Balance -500 754 - Lab Results Fish Bones: 01/14/24 08:40 Assessment/Plan - Problem List (2) Delivery by section Impression: routine post op care. CBC in am.
[2024-01-15] MEDS: DOCUSATE SODIUM 100 MG CAPSULE PO SCH (23:20)
[2024-01-16] MEDS: KETOROLAC 30 MG/ML VIAL IVP ONE (04:30)
[2024-01-16 06:07] LABS: MEAN CORPUSCULAR HGB CONC 33.3 g/dL (32.0-36.0); MEAN PLATELET VOLUME 10.8 fL (7.9-10.8); RED CELL DISTRIBUTION WIDTH 13.5 % (12.0-15.0); WHITE BLOOD COUNT 21.6 x10^3/uL (4.8-10.8)
[2024-01-16] MEDS: PRENATAL VITAMIN TABLET PO SCH (09:18)
[2024-01-16] MEDS ORDERED: IBUPROFEN 600 MG TABLET PO SCH (10:00)
[2024-01-16] MEDS: IBUPROFEN 600 MG TABLET PO SCH (11:41)
--- NOTE | 2024-01-16 12:51 | Discharge Plan ---
Discharge Plan Problem Reviewed?: Yes Disposition: Home, Self Care Condition: Good Diet: Regular Activity Restrictions: Activity as Tolerated Shower Restrictions: No Driving Restrictions: Yes (May drive when comfortable without pain medications) Weight Bearing: Full Weight Instruction Topics: , Depression No Smoking: If you smoke, Please STOP! Call for help. Follow-up with: Argelia Agarwal MD [Provider Admit Priv/Credential] -
--- NOTE | 2024-01-16 12:53 | DISCHARGE SUMMARY ---
Discharge Summary Admit Date: 01/14/24 Discharge Date: 01/16/24 Condition at Discharge: Good Discharge Disposition: Home, Self Care Discharge Facility Name: [facility] - DIAGNOSES Admission Diagnoses: 23yo admitted for scheduled elective IOL at 39.1 - HPI History of Present Illness: 23yo admitted for scheduled elective IOL at 39.1 - HOSPITAL COURSE Hospital Course: 23yo admitted for scheduled elective IOL at 39.1. She was induced with misoprostol. Epidural placed. AROM. Pitocin augmentation. She dilated to 8cm but did not progress. PCD for failure to progress. Uncomplicated PCD 01/15/24 see report. Recovering appropriately. Appropriate lochia. Ambulating. Voiding. Tolerating regular diet. Declines , exclusively formula feeding. Reviewed breast care. Mood is good. Postoperative anemia from expected blood loss. She has been taking oral iron and will continue . She is feeling well and requesting to ho home today, POD#1. Reviewed , postoperative care and all questions answered. - ALLERGIES Allergies/Adverse Reactions: Allergies Allergy/AdvReac Type Severity Reaction Status Date / Time gluten Allergy Cramps Verified 01/14/24 17:07 - MEDICATIONS Home Medications: Ambulatory Orders Medication Instructions Recorded Confirmed Ondansetron HCl 4 mg PO DAILY PRN 01/14/24 01/14/24 No122/Iron/Folic Acid 1 tab PO DAILY 01/14/24 01/14/24 [ Multi Tablet] - PHYSICAL EXAM AT DISCHARGE General Appearance: positive: No acute distress Eyes Bilateral: positive: EOMI Respiratory: positive: No respiratory distress Cardiovascular: positive: Other (Regular rate) Abdomen: positive: Other (Appropriately tender, dressing removed, incision c/d/i with steri strips) Skin: positive: Color nml Extremities: positive: Non-tender Neurologic/Psychiatric: positive: Oriented x3 - LABS Result Diagrams: 01/16/24 06:00 - QUALITY (Female Hip Fx Only) Was patient sent home on osteoporosis medication?: No - FOLLOW UP Follow Up: 01/22/24 0915 in WC - TIME SPENT Time Spent in Discharge (Minutes): 25
[2024-01-16 16:49] VITALS: BP 108/66; O2SAT 99
--- NOTE | 2024-01-16 17:00 | Labor Flowsheet ---
Labor Flowsheet Datetime Report Generated by CPN: 01/16/2024 17:00 Datetime: 01/15/2024 14:22 Membranes Ruptured Date/Time: 01/14/2024 17:00 Cervical Ripening Agents: Cytotec @ Datetime: 01/15/2024 08:00 VITAL SIGNS NBP Sys/Rowena/Mean (mmHg): 103 : 84 : 88 Pulse: 79 FHR Baseline Changes: No Baseline Change PATIENT CARE Oxygen Method: Room Air LaborFlag: Labor Datetime: 01/15/2024 07:42 Communication Comments: Dr. Agarwal at bedside to discuss option for c/s Datetime: 01/15/2024 07:40 SpO2 (%): 100 Datetime: 01/15/2024 07:30 Resting Tone IUP (mmHg): 95 Intensity IUP (mmHg): 240 [place] Units (mmHg): 145 Pitocin Checklist: At Least 1 Acceleration of 15 bpm x 15 Seconds in 30 Minutes or Adequate Variabi lity; No More than 1 Late Deceleration Occurred in Past 30 Minutes; No More than 2 Variable Decelerat ions > 60 Seconds in Duration and decreasing >60 bpm in 30 minutes; No More than 5 Uterine Contractio ns in 10 Minutes for any 20 Minute Interval; Uterus Palpates Soft between Contractions; IUPC Resting Tone less than 25 mmHg Datetime: 01/15/2024 06:59 UTERINE ACTIVITY Monitor Mode: Internal Frequency (min): 2-3 Quality: Moderate Duration (sec): 70-110 Pattern: Normal: <= 5 Contractions in 10 Minutes Resting Tone (Palpate): Relaxed ASSESSMENT A Monitor Mode: Telemetry FHR Baseline Rate : 135 Variability: Moderate 6-25 bpm Accelerations: 15X15 Decelerations: None Category: Category I Datetime: 01/15/2024 06:45 Stage of : 37. Temperature (C): 37.1 VAGINAL EXAM Dilatation (cm): 8.0 Effacement (%): 80 Station: -1 Exam by: Letitia Datetime: 01/15/2024 06:29 MEDICATIONS Pitocin (milliunits): Increased to @ 18 Datetime: 01/15/2024 05:30 Monitor Interventions for UA: IUPC Inserted Datetime: 01/15/2024 04:32 Patient Care Comments: Dr. Agarwal and Dianna RACING MANAGER reviewed strip Datetime: 01/14/2024 21:15 Comments: periods of broken tracing/tracing maternal hr due to pt being repositioned Datetime: 01/14/2024 20:25 Epidural Procedure: Cath Placed Datetime: 01/14/2024 20:05 PROCEDURE TIME OUT Procedure Verify: Correct Patient Identity; Correct Side and Site are Marked; Accurate Procedure Co nsent Form; Agreement on Procedure to be Done; Correct Patient Position; Relevant Images and Results are Properly Labeled and Displayed; Safety Precautions Based on Patient History or Medication Use ANESTHESIA Anesthesia Plans: Epidural Epidural Positioning: Sitting Datetime: 01/14/2024 20:04 Anesthesia Comments: anesthesia at bedside for epidural Datetime: 01/14/2024 18:56 Patient Position/Activity: Birthing Ball Datetime: 01/14/2024 17:50 PAIN Pain Coping: Requesting Pain Medication or Epidural Datetime: 01/14/2024 17:30 Monitor Interventions for FHR: Ultrasound Adjusted Datetime: 01/14/2024 17:23 Membrane Status: Ruptured Membranes Rupture Method: Artificial Amniotic Fluid Color: Clear Amniotic Fluid Amount: Moderate Amniotic Fluid Odor: Normal Datetime: 01/14/2024 17:21 COMMUNICATION Communication: Provider at Bedside Datetime: 01/14/2024 14:51 Temperature Route: Oral Datetime: 01/14/2024 13:25 Vaginal Bleeding: None Cervix, Consistency: Soft Cervix, Position: Anterior
== END 2024-01-16 15:30 | disposition home or self-care (01) | DRG 788 ==
LOC: WFO 08:00 → FBP 08:09 → WFO 08:09 → FBP 08:10 → WFO 08:10 → FBP 01-15 10:20
PROVIDERS: ADMIT Obstetrics & Gynecology; ATTEND Obstetrics & Gynecology
PROC: 10907ZC Drainage of Amniotic Fluid, Therapeutic from Products of Conception, Via Natural or Artificial Opening (ICD-10-PCS; 2024-01-14)
PROC: 3E0DXGC Introduction of Other Therapeutic Substance into Mouth and Pharynx, External Approach (ICD-10-PCS; 2024-01-14)
PROC: 10H07YZ Insertion of Other Device into Products of Conception, Via Natural or Artificial Opening (ICD-10-PCS; 2024-01-15)
PROC: 10D00Z1 Extraction of Products of Conception, Low, Open Approach (ICD-10-PCS; principal; 2024-01-15 08:00)
DX: O62.1 Secondary uterine inertia (principal); Z3A.39 39 weeks gestation of pregnancy; Z37.0 Single live birth; O76 Abnormality in fetal heart rate and rhythm complicating labor and delivery; O99.214 Obesity complicating childbirth; O32.4XX0 Maternal care for high head at term, not applicable or unspecified
CPT/HCPCS: 36415; 85025; 85027; 86850; 86900; 86901; A9270; J0131; J1200; J2372; J2795; J7120